=== PATIENT | female | born 1980 | race Two or more races ===

== ENCOUNTER 2017-12-26 13:13 | Observation (INO) | payer OTHER ==
[2017-12-26] MEDS ORDERED: METF500T4 PO (14:28)
[2017-12-26] MEDS ORDERED: FERR-82 PO (14:32)
[2017-12-26] MEDS ORDERED: RINGERS SOLUTION,LACTATED 1,000 ML IV ONE (18:49)
[2017-12-26] MEDS: RINGERS SOLUTION,LACTATED 1,000 ML IV SCH (19:15)
[2017-12-26 21:22] LABS: GLUCOMETER DEV NAME(LOC) 4S 8; GLUCOSE,POINT OF CARE 71 MG/DL (70-110)
[2017-12-26 21:22] LABS: GLUCOMETER DEV NAME(LOC) 4S 8; GLUCOSE,POINT OF CARE 94 MG/DL (70-110)
[2017-12-26 23:12] VITALS: BP 113/58
[2017-12-27] MEDS: RINGERS SOLUTION,LACTATED 1,000 ML IV SCH ×2 (02:13→10:04)
[2017-12-27] MEDS: BETAMETHASONE SOLUSPAN 6 MG/ML 5 ML VIAL IM SCH ×2 (02:13→13:27)
[2017-12-27 07:52] LABS: GLUCOMETER DEV NAME(LOC) 4S 8; GLUCOSE,POINT OF CARE 109 MG/DL (70-110)
[2017-12-27 09:37] LABS: GLUCOMETER DEV NAME(LOC) 4S 8; GLUCOSE,POINT OF CARE 154 MG/DL (70-110)
[2017-12-27 10:24] LABS: BASOPHILS % (AUTO) 0.2 % (0.0-2.0); EOSINOPHILS % (AUTO) 0.1 % (1.0-6.0); HEMATOCRIT 33.4 % (36-46); HEMOGLOBIN 11.5 g/dL (12.0-16.0); LYMPHOCYTES # (AUTO) 0.8 K/uL (1.0-4.8); LYMPHOCYTES % (AUTO) 14.2 % (22.0-44.0); MEAN CORPUSCULAR HEMOGLOBIN 25.9 pg (26.0-34.0); MEAN CORPUSCULAR HGB CONC 34.4 G/dL (31.0-37.0); MEAN CORPUSCULAR VOLUME 75 fL (80-100); MONOCYTES # (AUTO) 0.1 K/uL (0.1-1.0); MONOCYTES % (AUTO) 1.4 % (2.0-9.0); NEUTROPHILS # (AUTO) 4.7 K/uL (1.8-7.7); NEUTROPHILS % (AUTO) 84.1 % (40.0-70.0); PLATELET COUNT (AUTO)-OB 166 K/uL (150-450); RED BLOOD CELL COUNT(AUTO) 4.43 MIL/uL (4.00-5.20); RED CELL DISTRIBUTION WIDTH 18.7 % (11.5-14.5)
[2017-12-27 10:32] LABS: ANION GAP 11 mmol/L (8-16); CARBON DIOXIDE 21 mmol/L (22-29); CHLORIDE 105 mmol/L (98-107); CREATININE 0.35 mg/dL (0.60-1.30); GLOMERULAR FILTR. RATE CALC > 60 mL/min (>60); GLUCOSE,RANDOM 153 mg/dL (70-110); POTASSIUM 3.7 mmol/L (3.5-5.1); SODIUM SERUM 137 mmol/L (136-145); UREA NITROGEN, BLOOD 5 mg/dL (7-18)
[2017-12-27 10:37] LABS: ALANINE AMINOTRANSFERASE 18 U/L (12-78); ALBUMIN 2.5 g/dL (3.4-5.0); ALKALINE PHOSPHATASE 119 U/L (46-116); ASPARTATE AMINOTRANSFERASE 20 U/L (15-37); BILIRUBIN,TOTAL 0.6 mg/dL (0.1-1.0); TOTAL PROTEIN, SERUM 6.6 g/dL (6.4-8.2)
[2017-12-27] MEDS ORDERED: MetFORMIN HCL 500 MG TABLET PO ONE (12:30)
[2017-12-27 13:22] LABS: GLUCOMETER DEV NAME(LOC) 4S 8; GLUCOSE,POINT OF CARE 160 MG/DL (70-110)
[2017-12-28] MEDS ORDERED: MetFORMIN HCL 500 MG TABLET PO SCH (08:00)
== END 2017-12-27 13:30 | disposition home or self-care (01) ==
LOC: 4S 13:30
PROVIDERS: ADMIT Obstetrics & Gynecology; ATTEND Obstetrics & Gynecology
DX: O42.913 Preterm premature rupture of membranes, unspecified as to length of time between rupture and onset of labor, third trimester (principal); O24.415 Gestational diabetes mellitus in pregnancy, controlled by oral hypoglycemic drugs; O09.523 Supervision of elderly multigravida, third trimester; Z3A.33 33 weeks gestation of pregnancy
CPT/HCPCS: 36415 ×2; 59025 ×2; 76805; 76811; 80053; 82962 ×2; 85025; 89060; 96360; 96361 ×2; 96372; G0378 ×2; J0702; J7120 ×2